=== PATIENT | male | born 1980 | race African-American/Black ===

== ENCOUNTER 2018-02-19 15:18 | Emergency (ER) | payer OTHER, SELFPAY ==
--- NOTE | 2018-02-19 16:36 | RAD ---
RIGHT TIBIA AND FIBULA: 02/19/18 AP and lateral views obtained portably. HISTORY: Trauma with pain and injury. IMPRESSION: No evidence of acute fracture. POS: [facility]
== END 2018-02-19 16:38 | disposition home or self-care (01) ==
LOC: ERS 15:18
DX: S80.11XA Contusion of right lower leg, initial encounter (principal); V43.62XA Car passenger injured in collision with other type car in traffic accident, initial encounter